=== PATIENT | male | born 1950 | race Asian ===

== ENCOUNTER 2023-01-19 05:04 | Day surgery (SDC) | payer OTHER ==
[2023-01-15 13:47] VITALS: BMI 25.4
[2023-01-19 06:31] VITALS: RESP 20
[2023-01-19] MEDS ORDERED: FENTANYL CITRATE/PF 50 MCG/ML VIAL ONE (07:52)
[2023-01-19] MEDS ORDERED: MIDAZOLAM HCL 2 MG/2 ML SINGLE DOSE VIAL ONE (07:52)
[2023-01-19] MEDS ORDERED: PROPOFOL 20 ML ONE (08:04)
[2023-01-19] MEDS ORDERED: SUCCINYLCHOLINE CHLORIDE 200 MG/10 ML SYRINGE ONE (08:04)
[2023-01-19] MEDS ORDERED: ONDANSETRON 4 MG/2 ML VIAL ONE (08:10)
[2023-01-19 10:20] VITALS: BP 139/83; PULSE 54; TEMP 97.3
== END 2023-01-19 09:40 | disposition home or self-care (01) ==
LOC: JASU-SURG 05:04
PROVIDERS: ATTEND Urology
PROC: 0TF4XZZ Fragmentation in Left Kidney Pelvis, External Approach (ICD-10-PCS; principal; 2023-01-19 08:00)
DX: N20.0 Calculus of kidney (principal)
CPT/HCPCS: 82962